=== PATIENT | male | born 1960 | race Two or more races ===

== ENCOUNTER 2016-08-01 13:18 | Emergency (ER) | payer OTHER, BC ==
[~2016-08-01] VITALS: Ht 167.6 cm; Wt 75.7 kg
[~2016-08-01 13:18] MED LIST: NKM
--- NOTE | 2016-08-01 13:42 | Emergency Room Report ---
History of Present Illness General Chief Complaint: Skin Rash/Abscess Source: Patient Present Illness HPI 55-year-old male presents to emergency Department complaining of erythema, swelling, tenderness to the right thumb x5 days. Patient states initially he had a small paper cut from moving papers to the top of the right thumb and over the course of several days noticed swelling with purulent under the skin. Patient denies fevers or chills. He denies immunocompromised, diabetes or past medical history. Denies numbness tingling or loss of sensation or gross motor movements of the extremities, incontinence of bowel or bladder. Denies CP, Palpitations, LOC, AMS, dizziness, Changes in Vision, Sensation, paresthesias, or a sudden severe headache. Allergies: Coded Allergies: No Known Allergies (Unverified , 11/27/15) Patient History Past Medical History: see triage record Past Surgical History: none Pertinent Family History: none Reviewed Nursing Documentation: PMH: Agreed, PSxH: Agreed Nursing Documentation-PMH Past Medical History: No Stated History Hx Cardiac Problems: No Hx Cancer: No Hx Gastrointestinal Problems: No Hx Neurological Problems: No Review of Systems All Other Systems: negative except mentioned in HPI Physical Exam Vital Signs Date Time Temp Pulse Resp B/P Pulse Ox O2 Delivery O2 Flow Rate FiO2 08/01/16 13:34 97.7 84 20 150/96 99 Room Air Sp02 EP Interpretation: reviewed, normal General Appearance: no apparent distress, alert, GCS 15, non-toxic Head: normocephalic, atraumatic Eyes: bilateral eye PERRL, bilateral eye normal inspection ENT: hearing grossly normal, normal pharynx, no angioedema, normal voice Neck: full range of motion, supple/symm/no masses Respiratory: chest non-tender, lungs clear, normal breath sounds, speaking full sentences Cardiovascular #1: regular rate, rhythm, no edema Cardiovascular #2: 2+ carotid (R), 2+ carotid (L), 2+ radial (R), 2+ radial (L) , 2+ dorsalis pedis (R), 2+ dorsalis pedis (L) Gastrointestinal: normal bowel sounds, non tender, soft, no guarding, no rebound Rectal: deferred Genitourinary: normal inspection, no CVA tenderness Musculoskeletal: back normal, gait/station normal, normal range of motion, non- tender, no calf tenderness Neurologic: alert, oriented x3, responsive, motor strength/tone normal, sensory intact, speech normal Psychiatric: judgement/insight normal, memory normal, mood/affect normal, no suicidal/homicidal ideation Reflexes: 4+ bicep (R), 4+ bicep (L), 4+ tricep (R), 4+ tricep (L), 4+ knee (R) , 4+ knee (L) Skin: normal color, no rash, warm/dry, well hydrated, other - Area od purulence noted to the right aspect of the right thumbs cuticle. Surrounding erythema and swelling. No finger pad tenderness. Lymphatic: no adenopathy Medical Decision Making PA Attestation Dr. Arroyo is my supervising Physician whom patient management has been discussed with. Diagnostic Impression: Primary Impression: Paronychia of finger of right hand ER Course Pt. presents to the ED c/o pain, swelling, and erythema of right thumb x5 days Ddx considered but are not limited to cellulitis, paronychia, eponychia, ingrown toe nail, fracture, d/L, gout Vital signs: are WNL, pt. is afebrile H&PE are most consistent with paronychia, two other providers also inspected the thumb, as felon was questionable, however due to no finger pad TTP it was determined to be paronychia with surrounding cellulitis. ORDERS: -1.5g Vancomycin IV ED INTERVENTIONS: I&D DISCHARGE: At this time pt. is stable for d/c to home. Will provide printed patient care instructions, and any necessary prescriptions. Care plan and follow up instructions have been discussed with the patient prior to discharge. Last Vital Signs Date Time Temp Pulse Resp B/P Pulse Ox O2 Delivery O2 Flow Rate FiO2 08/01/16 13:34 97.7 84 20 150/96 99 Room Air Disposition: HOME, SELF-CARE Condition: Stable Departure Forms: Return to Work Return to Work Date: Aug 05, 2016 Return to Full Activity: Aug 05, 2016 Patient Instructions: Paronychia Additional Instructions: Take medications as directed. Follow up with PCP in 3-5 days Return sooner to ED if new symptoms occur, or current symptoms become worse * pay special attention for pain to the finger pad. Magdalena Portillo Aug 01, 2016 13:42
[2016-08-01] MEDS ORDERED: Lidocaine 1% MPF 10mg/ml 5ml IM ONE (13:45)
[2016-08-01] MEDS ORDERED: TdaP Vaccine 0.5ml Syr IM ONE (13:45)
[2016-08-01 13:50] VITALS: BP 150/96
[2016-08-01] MEDS ORDERED: Vancomycin 1.5gm/D5W 300ml 300 ML IVPB ONE (14:15)
[2016-08-01] MEDS ORDERED: DOXYCYCLINE MO100 MG ORAL (15:01)
[2016-08-01] MEDS ORDERED: TYLENOL EXTRA500 MG ORAL (15:01)
[2016-08-01 16:49] VITALS: BP 142/68
== END 2016-08-01 16:50 | disposition home or self-care (01) ==
LOC: EMR 14:00
DX: L03.011 Cellulitis of right finger (principal); Z23 Encounter for immunization
CPT/HCPCS: 10060; 90471; 90715; 96374; 99284; J3370

== ENCOUNTER 2017-06-10 05:41 | Day surgery (SDC) | payer BC ==
[2017-06-10] VITALS (14 sets, daily range): BP systolic 105–134; BP diastolic 61–90
[~2017-06-10] VITALS: Ht 167.6 cm; Wt 71.7 kg
[~2017-06-10 05:41] MED LIST changes: +DOXYCYCLINE MO100 MG ORAL; +TYLENOL EXTRA500 MG ORAL
[2017-06-10] MEDS ORDERED: Bupivacaine 0.5% Inj 30 ml vial INJ ONE (07:10)
[2017-06-10] MEDS ORDERED: Cocaine HCl 4% 4ml vial TOPIC ONE (07:10)
[2017-06-10] MEDS ORDERED: Lidocaine 1% 10mg/ml/Epi 0.005mg/ml 30ml vial INJ ONE (07:10)
[2017-06-10] MEDS ORDERED: NS Irrig 1000ml ONE (07:30)
[2017-06-10] MEDS ORDERED: LR 1000ml ONE (07:30)
[2017-06-10] MEDS ORDERED: Ketorolac 30mg Inj ONE (07:30)
[2017-06-10] MEDS ORDERED: Sterile Water Irrig 1000ml IRRIG ONE (07:30)
[2017-06-10] MEDS ORDERED: Midazolam 2mg/2ml Inj ONE (07:30)
[2017-06-10] MEDS ORDERED: Lidocaine 1% MPF 10mg/ml 5ml ONE (07:30)
[2017-06-10] MEDS ORDERED: fentaNYL 100 mcg/2 mL IV ONE (07:30)
[2017-06-10] MEDS ORDERED: Propofol 200mg/20ml IV ONE (07:30)
--- NOTE | 2017-06-10 07:38 | Anethesia Preoperative Eval ---
Anesthesia Pre-op PMH/ROS General Date of Evaluation: Jun 10, 2017 Time of Evaluation: 07:35 Anesthesiologist: Skylar ASA Score: ASA 2 Mallampati Score Class I : Soft palate, uvula, fauces, pillars visible Class II: Soft palate, uvula, fauces visible Class III: Soft palate, base of uvula visible Class IV: Only hard plate visible Mallampati Classification: Class II Surgeon: Blanca Diagnosis: Nasal septum deviation Surgical Procedure: Septoplasty Anesthesia History: none Family History: no anesthesia problems Allergies: Coded Allergies: No Known Allergies (Unverified , 11/27/15) Medications: see eMAR Past Medical History Cardiovascular: Denies: HTN, CAD, [place], valve dz, arrhythmia, other Pulmonary: Denies: asthma, COPD, KALI, other Gastrointestinal/Genitourinary: Reports: GERD - mild, Denies: CRI, ESRD, other Neurologic/Psychiatric: Denies: dementia, CVA, depression/anxiety, TIA, other Endocrine: Denies: DM, hypothyroidism, steroids, other HEENT: Denies: cataract (L), cataract (R), glaucoma, RUBY (L), RUBY (R), other Hematology/Immune: Denies: anemia, DVT, bleeding disorder, other Musculoskeletal/Integumentary: Denies: OA, RA, DJD, DDD, edema, other PMH Narrative: as above PSxH Narrative: Colonoscopy Anesthesia Pre-op Phys. Exam Physician Exam Last Vital Signs Date Time Temp Pulse Resp B/P (MAP) Pulse Ox O2 Delivery O2 Flow Rate FiO2 06/10/17 06:03 97.5 71 18 134/71 100 Room Air Constitutional: NAD Neurologic: CN 2-12 intact Cardiovascular: RRR, no M/R/G Respiratory: CTA Gastrointestinal: S/NT/ND Airway Exam Mallampati Score: Class II MO: full Neck: flexible ROM: full Teeth: intact Dentures: no upper, no lower Anesthesia Pre-op A/P Labs see chart Studies Pre-op Studies: EKG - NSR Risk Assessment & Plan Assessment: ASA 2 Plan: GA with LMA Status Change Before Surgery: No Pre-Antibiotics Drug: Ancef 1 gr. Given Within 1 Hr of Incision: Yes Time Given: 08:02 ZACH HOFF M.D. Jun 10, 2017 07:38
[2017-06-10] MEDS ORDERED: ceFAZolin 1gm/50ml Premix 50 ML IV ONE (07:39)
[2017-06-10] MEDS ORDERED: ceFAZolin sod 1 GM in D5W 55 ML IV ONE (07:45)
--- NOTE | 2017-06-10 07:49 | Pre-Procedure Note/Attestation ---
Pre-Procedure Note/Attestation Complete Prior to Procedure Planned Procedure: bilateral Procedure Narrative: Septoplasty Submucous resection bilateral inferior turbinates Indications for Procedure Pre-Operative Diagnosis: Nasal septal deviation Bilateral hypertrophy of inferior turbinates Nasal airway obstruction not responding to nasal steroids or antihistamines. Attestation I attest that I discussed the nature of the procedure; its benefits; risks and complications; and alternatives (and the risks and benefits of such alternatives ), prior to the procedure, with the patient (or the patient's legal customer development representative). I attest that, if there was a reasonable possibility of needing a blood transfusion, the patient (or the patient's legal customer development representative) was given the [place] Department of Health Services standardized written summary, pursuant to the [place] Blood Safety Act ([place] Health and Safety Code # 1645, as amended). I attest that I re-evaluated the patient just prior to the surgery and that there has been no change in the patient's H&P. ALEXANDRA HUI Jun 10, 2017 07:49
[2017-06-10] MEDS ORDERED: LR 1000ml 1,000 ML IVLG SCH (08:11)
[2017-06-10] MEDS ORDERED: DiphenhydrAMINE 50mg/ml Inj IVP PRN (08:15)
[2017-06-10] MEDS ORDERED: Ketorolac 30mg Inj IV PRN (08:15)
[2017-06-10] MEDS ORDERED: Meperidine 50mg/ml Inj(FOR RIGORS ONLY) IV PRN (08:15)
[2017-06-10] MEDS ORDERED: Hydromorphone 0.5mg/0.5ml inj IVP PRN (08:15)
--- NOTE | 2017-06-10 08:25 | Brief Operative Note ---
Immediate Post Operative Note Operative Note Pre-op Diagnosis: Nasal septal deviation Bilateral hypertrophy of inferior turbinates Nasal airway obstruction not responding to nasal steroids or antihistamines. Procedure: 1. Septoplasty 2. Bilateral submucous resection inferior turbinates Post-op Diagnosis: same as pre-op Surgeon: Alexandra Hui Psych Therapist: none Additional Surgeons: none Anesthesiologist: Wiley Anesthesia: general Specimen: none Complications: none Condition: stable Fluids: 100 d5 LR Estimated Blood Loss: volume - 20cc Drains: none Packing: Stamberger nasal gel Implant(s) used?: No ALEXANDRA HUI Jun 10, 2017 08:25
--- NOTE | 2017-06-10 08:28 | Discharge Instructions ---
Discharge Instructions Discharge Instructions Follow up with: next week-pt has appt already Diet: regular Resume Normal Activity?: No Activity: light activity Pneumonia Vaccine: pt refused vaccine Influenza Vaccine (Apr to Sep): pt refused vaccine Follow Up Orders pt has printed instructions reviewed and given to him last week during his pre op in my office. Return to Work/School on: Jun 24, 2017 For Surgical Patients Dressing Care: may change Contact your physician for: bleeding, pain, tenderness, redness, swelling, yellowish discharge in the op. site For Congestive Heart Failure Reminder Report to your physician any weight gain of 5 pounds or more in one week. ALEXANDRA HUI Jun 10, 2017 08:28
--- NOTE | 2017-06-10 09:08 | Immediate Post-Op Evaluation ---
Immediate Post-Op Evalulation Immediate Post-Op Evalulation Procedure: Septoplasty Turbinate ablasion Date of Evaluation: Jun 10, 2017 Time of Evaluation: 08:30 IV Fluids: 800 Blood Products: none Estimated Blood Loss: <50 Urinary Output: none Blood Pressure Systolic: 119 Blood Pressure Diastolic: 58 Pulse Rate: 72 Respiratory Rate: 20 O2 Sat by Pulse Oximetry: 99 Temperature (Fahrenheit): 97.8 Pain Score (1-10): 2 Nausea: No Vomiting: No Complications none Patient Status: reacts, patent, none Hydration Status: adequate ZACH HOFF M.D. Jun 10, 2017 09:08
--- NOTE | 2017-06-10 10:58 | 48 Hour Post Anesthesia Eval ---
Post Anesthesia Evaluation Procedure: Septoplasty Turbinate ablasion Date of Evaluation: Jun 10, 2017 Time of Evaluation: 10:57 Blood Pressure Systolic: 116 0: 74 Pulse Rate: 68 Respiratory Rate: 20 Temperature (Fahrenheit): 97.5 O2 Sat by Pulse Oximetry: 99 Airway: patent Nausea: No Vomiting: No Pain Intensity: 2 Hydration Status: adequate Cardiopulmonary Status: stable Mental Status/LOC: patient returned to baseline Follow-up Care/Observations: n/a Post-Anesthesia Complications: none Follow-up care needed: ready to discharge ZACH HOFF M.D. Jun 10, 2017 10:58
[2017-06-10] MEDS ORDERED: Norco 5mg/325mg tab ORAL PRN (14:31)
[2017-06-10] MEDS ORDERED: HYDROmorphone 1mg/ml Carpuject SUBQ PRN (14:31)
[2017-06-10] MEDS ORDERED: Metoclopramide 10mg/2ml Inj IVP PRN (14:31)
--- NOTE | 2017-06-10 17:30 | Operative Note - Dictated ---
DATE OF OPERATION: 06/10/2017 SURGEON: Alfonzo Rios M.D. AGRICULTURE SPECIALIST: None. ANESTHESIOLOGIST: David Cheng M.D. ANESTHESIA: LMA general anesthesia as well as 10 mL 50:50 mixture of 1% lidocaine with 1:100,000 epinephrine and Marcaine 0.5% without epinephrine. PREOPERATIVE DIAGNOSES: Nasal airway obstruction secondary to: 1. Septal deviation to the left with a spur. 2. Hypertrophied right inferior turbinate. 3. Hypertrophied left inferior turbinate. POSTOPERATIVE DIAGNOSES: Nasal airway obstruction secondary to: 1. Septal deviation to the left with a spur. 2. Hypertrophied right inferior turbinate. 3. Hypertrophied left inferior turbinate. FINDINGS: Nasal airway obstruction secondary to: 1. Septal deviation to the left with a spur. 2. Hypertrophied right inferior turbinate. 3. Hypertrophied left inferior turbinate. PROCEDURE: 1. Septoplasty. 2. Submucous resection of right inferior turbinate. 3. Submucous resection of left inferior turbinate. TECHNIQUE: The patient was prepped and draped in usual manner after a time-out. All agreed with the procedures to be done and was cleared to start with injection post LMA placement. Either turbinate and the septal soft tissue was injected with 1% lidocaine with 1:100,000 epinephrine and Marcaine 0.5% without epinephrine. Total of 10 mL, 5 mL of each. Additionally, 4 mL of 0.25% were placed on four nasal pledgets, two on either nostril. I initially started by making incision in the inferior aspect of the right inferior turbinate with a #15 blade. This was elevated submucosally with a [place] elevator. I then placed Stammberger nasal gel on a 45 radiofrequency wand and placed it for 10 seconds x2 in the inferior turbinate on the right. The right turbinate was then outfractured with a [place] elevator. I then turned my attention to the left inferior turbinate, made an incision with #15 blade, and elevated submucosally with a [place] elevator. I then proceeded to utilize radiofrequency wand coated with saline gel for 10 seconds x2. I then outfractured with a [place] elevator. Septoplasty was performed by making a [place] incision on the left side of the septum. This was elevated with a dental elevator. Subperiosteal and subperichondrial lifting up of flap on either side of the septal cartilage. I then left 1 cm inferior base of the quadrangular cartilage, 1 cm anterior, and cut with a small angled scissors anteriorly. With a straight Mitzy, I removed fair amount of the septal cartilage. I then proceeded to use a gouge osteotome and removed the vomer on the left side. Mattress 4-0 plain suture was placed to close the flap on the left side. Please note, there was no violation of the flap on the right side of the septum. So, it was intact. Area was suction cleaned. Stammberger nasal gel was placed in either nostril, most of it in the left, a quarter of it in the right. Mustache dressing was placed. Sponge and needle count was correct and agreed to by all. ESTIMATED BLOOD LOSS: 20 mL. COUNTS: None. DRAINS: None. Alfonzo Rios M.D. DR: Dior JOB#: [id number] CC: [id number]
== END 2017-06-10 11:20 | disposition home or self-care (01) ==
LOC: SUR 05:41
DX: J34.2 Deviated nasal septum (principal); J34.3 Hypertrophy of nasal turbinates; K21.9 Gastro-esophageal reflux disease without esophagitis
CPT/HCPCS: 30140; 30520; J0690; J1885; J2250; J2704; J3010; J3490; J7120; 94003; 94150